=== PATIENT | female | born 1970 | race Caucasian/White ===

== ENCOUNTER 2021-09-06 07:57 | Emergency (ER) | payer BC ==
[~2021-09-06] VITALS: Ht 154.9 cm; Wt 69.4 kg
[2021-09-06] MEDS ORDERED: GLUMETZA500 MG (08:18)
== END 2021-09-06 14:02 | disposition home or self-care (01) ==
LOC: ER 07:57
DX: H72.91 Unspecified perforation of tympanic membrane, right ear (principal)